=== PATIENT | female | born 1945 | race Hispanic/Latino ===

== ENCOUNTER 2021-09-20 14:00 | Inpatient (IN) | payer MEDICARE, OTHER ==
[~2021-09-20] VITALS: Ht 144.8 cm; Wt 86.3 kg
[2021-09-20 10:37] LABS: APPEARANCE,URINE Clear (CLEAR); BILIRUBIN,URINE Negative (NEGATIVE); COLOR,URINE Dark Yellow (YELLOW); GLUCOSE, URINE (UA) Negative (NEGATIVE); KETONES,URINE Negative (NEGATIVE); LEUKOCYTE ESTERASE ,URINE Trace (NEGATIVE); NITRATE,URINE Positive (NEGATIVE); OCCULT BLOOD,URINE Negative (NEGATIVE); PROTEIN,URINE Negative (NEGATIVE); UROBILINOGEN,URINE 0.2 mg/dL (0.2-1.0)
[2021-09-20 10:41] LABS: CREATININE 0.7 mg/dL (0.5-1.5); POTASSIUM 4.7 mmol/L (3.5-5.1)
[2021-09-20 10:53] LABS: BACTERIA,URINE Many /HPF (None Seen); RBC,URINE 0-1 /HPF (0-1); SQUAMOUS EPITHELIAL CELL,UR Rare /HPF (0-2); WBC,URINE 0-1 /HPF (0-1)
[2021-09-21 09:46] VITALS: BP 132/64
[2021-09-21] MEDS ORDERED: PRAV20TA4 PO (10:38)
[2021-09-21] MEDS ORDERED: FLUT16H NASAL (10:38)
[2021-09-21] MEDS ORDERED: CYCL30DR OP (10:38)
[2021-09-21] MEDS ORDERED: LOSA25TA41 PO (10:38)
[2021-09-21] MEDS ORDERED: CYAN250010 PO (10:38)
[2021-09-21] MEDS ORDERED: METF-446 PO (10:38)
[2021-09-21] MEDS ORDERED: AEC81 PO (10:38)
[2021-09-21] MEDS ORDERED: VITAMIN D2 PO (10:38)
[2021-09-21] MEDS ORDERED: AZEL137S11 NS (10:38)
[2021-09-21] MEDS ORDERED: FEXO-59 PO (10:38)
[2021-09-21] MEDS ORDERED: FAMO40TA7 PO (10:38)
[2021-09-21] MEDS ORDERED: MONT-39 PO (10:38)
[2021-09-21] MEDS ORDERED: MECL-160 PO (10:38)
[2021-09-21] MEDS ORDERED: CINN1CAP PO (10:38)
[2021-09-21] MEDS ORDERED: LEVO112C4 PO (10:38)
[2021-09-21] MEDS ORDERED: OMEP40CA21 PO (10:38)
[2021-09-21] MEDS ORDERED: METO-408 PO (10:38)
[2021-09-21] MEDS ORDERED: LOTE8.3D OP (10:38)
[2021-09-24] VITALS (21 sets, daily range): BP systolic 100–145; BP diastolic 43–70
[2021-09-24] MEDS: CEFAZOLIN SODIUM 1 GM VIAL IVP SCH ×4 (05:00→23:27)
[2021-09-24] MEDS ORDERED: CEFAZOLIN SODIUM 1 GM VIAL ONE (07:19)
[2021-09-24] MEDS ORDERED: TRANEXAMIC ACID 1000MG/10ML ONE ×2 (07:19→11:24)
[2021-09-24] MEDS: LEVOFLOXACIN 500 MG/D5W 100 ML 100 ML IV SCH ×2 (07:23→11:57)
[2021-09-24] MEDS ORDERED: VANCOMYCIN 1.5GM/NS 250ML IV SCH ×2 (07:30)
[2021-09-24] MEDS: GENTAMICIN SULFATE 240 MG in 0.9%NACL 100ML 100 ML IV SCH ×3 (08:23→11:57)
[2021-09-24] MEDS ORDERED: ACETAMINOPHEN 500 MG TABLET ONE (08:31)
[2021-09-24] MEDS ORDERED: CELECOXIB 200 MG CAP ONE (08:31)
[2021-09-24] MEDS ORDERED: ROCURONIUM 10MG/1ML SYR 10 MG/ML ML ONE (08:39)
[2021-09-24] MEDS ORDERED: MIDAZOLAM HCL 1 MG/ML 2ML VIAL ONE (08:39)
[2021-09-24] MEDS ORDERED: SUCCINYLCHOLINE 200MG/10ML SYR ONE (08:39)
[2021-09-24] MEDS ORDERED: LIDOCAINE PF 100MG/5ML (2%) SYRINGE 5ML ONE (08:39)
[2021-09-24] MEDS ORDERED: PROPOFOL 10 MG/ML 20ML VIAL IV ONE (08:39)
[2021-09-24] MEDS ORDERED: FENTANYL CITRATE PF 50 MCG/1 ML 2ML VIAL ONE (08:40)
[2021-09-24] MEDS ORDERED: ROPIVACAINE 0.5% 5MG/ML 30ML IJ ONE (08:49)
[2021-09-24] MEDS ORDERED: EPHEDRINE SULFATE 50 MG/ML AMPULE ONE (09:14)
[2021-09-24] MEDS: 0.9%NACL 1000ML 1,000 ML IV ONE ×3 (09:58→11:18)
[2021-09-24] MEDS ORDERED: ONDANSETRON 4MG INJ ONE (10:30)
[2021-09-24] MEDS ORDERED: NEOSTIGMINE 5MG/5ML SYR IV ONE (10:31)
[2021-09-24] MEDS ORDERED: GLYCOPYRROLATE 1 MG/5 ML SYRINGE ONE (10:31)
[2021-09-24] MEDS ORDERED: TEMAZEPAM 15 MG CAPSULE PO PRN (11:00)
[2021-09-24] MEDS ORDERED: LIDOCAINE HCL-MPF 1% 2ML VIAL IV PRN (11:00)
[2021-09-24] MEDS ORDERED: KETOROLAC 15MG/ML VIAL (15MG/ML) IV PRN (11:00)
[2021-09-24] MEDS ORDERED: TRAMADOL HCL 50 MG TABLET PO PRN (11:00)
[2021-09-24] MEDS ORDERED: ONDANSETRON 4MG INJ IVP PRN (11:00)
[2021-09-24] MEDS ORDERED: FERROUS FUMARATE 324 MG TABLET PO PRN (11:00)
[2021-09-24] MEDS ORDERED: CALCIUM CARB 500MG PO PRN (11:00)
[2021-09-24] MEDS: ACETAMINOPHEN 500 MG TABLET PO SCH ×2 (11:00→20:23)
[2021-09-24] MEDS ORDERED: KCL 20 MEQ ERTAB PO PRN (11:00)
[2021-09-24] MEDS ORDERED: OXYCODONE HCL 5 MG TAB PO PRN (11:00)
[2021-09-24] MEDS ORDERED: DiphenhydrAMINE HCL 50 MG/ML VIAL IVP PRN (11:00)
[2021-09-24] MEDS ORDERED: POTASSIUM CHLORIDE 10% ELIXIR 20 MEQ/15 ML UDCUP PO PRN (11:00)
[2021-09-24] MEDS ORDERED: POTASSIUM CHLORIDE 20MEQ/100ML 100 ML IV PRN (11:00)
[2021-09-24] MEDS: INSULIN HUMULIN R 100 UNIT/ML 3ML SQ SCH ×3 (11:30→21:00)
[2021-09-24] MEDS: 0.9%NACL 1000ML 1,000 ML IV SCH ×2 (11:54→20:23)
[2021-09-24] MEDS ORDERED: MEPERIDINE-PF 25 MG/ML SYG ONE (11:56)
[2021-09-24] MEDS ORDERED: CETIRIZINE HCL 5 MG TABLET PO PRN (13:00)
[2021-09-24] MEDS ORDERED: KETOROLAC 30MG VIAL (30MG/ML) ONE (13:54)
[2021-09-24] MEDS: FLUTICASONE PROPIONATE 50MCG/SPRAY 16 GM BOTTLE NS SCH (20:23)
[2021-09-24] MEDS: OXYCODONE HCL 5 MG TAB PO PRN (20:31)
[2021-09-24] MEDS: AZELASTINE HCL NASAL SCH (20:32)
[2021-09-24] MEDS: CYCLOSPORINE OP SCH (20:32)
[2021-09-24] MEDS: LOTEPREDNOL ETABONATE OP SCH (20:32)
[2021-09-24] MEDS: FAMOTIDINE 20MG TAB PO SCH (20:39)
[2021-09-24] MEDS: CELECOXIB 200 MG CAP PO SCH (20:40)
[2021-09-24] MEDS: ATORVASTATIN 10 MG TABLET PO SCH (20:40)
[2021-09-24] MEDS: NITROFURANTOIN MONOHYD/M-CRYST 100 MG CAPSULE PO SCH (20:40)
[2021-09-24] MEDS: PREGABALIN 25 MG CAP PO SCH (20:41)
[2021-09-25] VITALS (7 sets, daily range): BP systolic 92–146; BP diastolic 45–71
[2021-09-25] MEDS: CEFAZOLIN SODIUM 1 GM VIAL IVP SCH (03:50)
[2021-09-25] MEDS: ACETAMINOPHEN 500 MG TABLET PO SCH ×3 (03:54→18:50)
[2021-09-25 04:52] LABS: HEMATOCRIT 28.5 % (36-48); MEAN CORPUSCULAR HEMOGLOBIN 27.5 pg (27.0-33.0); MEAN CORPUSCULAR HGB CONC 31.9 g/dL (32.0-36.0); MEAN CORPUSCULAR VOLUME 86.1 fL (79-99); RED BLOOD CELL COUNT(AUTO) 3.31 MIL/uL (4.00-5.50); RED CELL DISTRIBUTION WIDTH 14.2 % (11.0-15.5); WHITE BLOOD COUNT (AUTO) 5.5 K/uL (4.8-10.8)
[2021-09-25 04:58] LABS: CREATININE 0.8 mg/dL (0.5-1.5); POTASSIUM 3.9 mmol/L (3.5-5.1)
[2021-09-25] MEDS: OXYCODONE HCL 5 MG TAB PO PRN ×2 (05:14→21:27)
[2021-09-25] MEDS: 0.9%NACL 1000ML 1,000 ML IV SCH (06:18)
[2021-09-25] MEDS: INSULIN HUMULIN R 100 UNIT/ML 3ML SQ SCH ×4 (06:18→21:00)
[2021-09-25] MEDS ORDERED: KETOROLAC 30MG VIAL (30MG/ML) ONE (07:56)
[2021-09-25] MEDS: METFORMIN HCL 500 MG TABLET PO SCH ×2 (08:09→16:32)
[2021-09-25] MEDS: PANTOPRAZOLE 40 MG TAB DR PO SCH (08:10)
[2021-09-25] MEDS: LEVOTHYROXINE 112 MCG TABLET PO SCH (08:12)
[2021-09-25] MEDS: LOSARTAN 25 MG TABLET PO SCH (09:00)
[2021-09-25] MEDS: FAMOTIDINE 20MG TAB PO SCH (09:00)
[2021-09-25] MEDS: LOTEPREDNOL ETABONATE OP SCH ×2 (09:00→21:00)
[2021-09-25] MEDS: CINNAMON BARK PO SCH (09:00)
[2021-09-25] MEDS: CYCLOSPORINE OP SCH ×2 (09:00→21:00)
[2021-09-25] MEDS: PREGABALIN 25 MG CAP PO SCH ×2 (09:00→21:27)
[2021-09-25] MEDS: FLUTICASONE PROPIONATE 50MCG/SPRAY 16 GM BOTTLE NS SCH ×2 (09:00→21:00)
[2021-09-25] MEDS: CHROMIUM PICOLIN PO SCH (09:00)
[2021-09-25] MEDS: AZELASTINE HCL NASAL SCH ×2 (09:00→21:00)
[2021-09-25] MEDS: APIXABAN 2.5 MG TABLET PO SCH ×2 (10:40→21:28)
[2021-09-25] MEDS: NITROFURANTOIN MONOHYD/M-CRYST 100 MG CAPSULE PO SCH ×2 (10:41→21:27)
[2021-09-25] MEDS: CELECOXIB 200 MG CAP PO SCH ×2 (10:41→21:27)
[2021-09-25] MEDS: CYANOCOBALAMIN (VITAMIN B-12) 1,000 MCG TABLET PO SCH (10:41)
[2021-09-25] MEDS: POLYETHYLENE GLYCOL 3350 17 GM POWD.PACK PO SCH (10:42)
[2021-09-25] MEDS: MECLIZINE HCL 25 MG TABLET PO SCH (11:12)
[2021-09-25] MEDS ORDERED: METOPROLOL SUCCINATE 50 MG TAB.SR.24H PO SCH (21:00)
[2021-09-25] MEDS ORDERED: FAMOTIDINE 20MG TAB PO SCH (21:00)
[2021-09-25] MEDS ORDERED: MONTELUKAST SODIUM 10 MG TAB PO SCH (21:00)
[2021-09-25] MEDS: ATORVASTATIN 10 MG TABLET PO SCH (21:28)
[2021-09-26] MEDS: ACETAMINOPHEN 500 MG TABLET PO SCH ×2 (03:34→10:49)
[2021-09-26 04:21] VITALS: BP 138/65
[2021-09-26] MEDS: INSULIN HUMULIN R 100 UNIT/ML 3ML SQ SCH ×2 (05:56→12:00)
[2021-09-26] MEDS: LEVOTHYROXINE 112 MCG TABLET PO SCH (05:59)
[2021-09-26] MEDS: PANTOPRAZOLE 40 MG TAB DR PO SCH (05:59)
[2021-09-26 07:30] VITALS: BP 133/51
[2021-09-26] MEDS: CINNAMON BARK PO SCH (08:49)
[2021-09-26] MEDS: CHROMIUM PICOLIN PO SCH (08:49)
[2021-09-26] MEDS: APIXABAN 2.5 MG TABLET PO SCH (08:50)
[2021-09-26] MEDS: CYANOCOBALAMIN (VITAMIN B-12) 1,000 MCG TABLET PO SCH (08:51)
[2021-09-26] MEDS: NITROFURANTOIN MONOHYD/M-CRYST 100 MG CAPSULE PO SCH (08:52)
[2021-09-26] MEDS: MECLIZINE HCL 25 MG TABLET PO SCH (08:53)
[2021-09-26] MEDS: CELECOXIB 200 MG CAP PO SCH (08:53)
[2021-09-26] MEDS: LOSARTAN 25 MG TABLET PO SCH (08:55)
[2021-09-26] MEDS: PREGABALIN 25 MG CAP PO SCH (08:55)
[2021-09-26] MEDS: METFORMIN HCL 500 MG TABLET PO SCH (08:55)
[2021-09-26] MEDS: POLYETHYLENE GLYCOL 3350 17 GM POWD.PACK PO SCH (08:56)
[2021-09-26] MEDS: FLUTICASONE PROPIONATE 50MCG/SPRAY 16 GM BOTTLE NS SCH (08:56)
[2021-09-26] MEDS: CYCLOSPORINE OP SCH (09:00)
[2021-09-26] MEDS: AZELASTINE HCL NASAL SCH (09:00)
[2021-09-26] MEDS: LOTEPREDNOL ETABONATE OP SCH (09:00)
[2021-09-26 11:00] VITALS: BP 140/71
[2021-09-26] MEDS ORDERED: APIX2.5T PO (14:25)
[2021-09-26] MEDS ORDERED: HYDR-4060 PO (14:25)
[2021-09-26] MEDS ORDERED: CEPH500B PO (16:51)
[2021-09-27] MEDS ORDERED: BISACODYL 10 MG SUPP.RECT RC PRN (11:00)
== END 2021-09-26 18:00 | disposition home health service (06) | DRG 470 ==
LOC: OBSVTOIN 09-24 06:37 → DAHIP 09-24 06:37 → 4AH 09-24 11:49
PROVIDERS: ADMIT Orthopaedic Surgery; ATTEND Orthopaedic Surgery
PROC: 0SRD0J9 Replacement of Left Knee Joint with Synthetic Substitute, Cemented, Open Approach (ICD-10-PCS; principal; 2021-09-24 09:35)
DX: M17.12 Unilateral primary osteoarthritis, left knee (principal); N39.0 Urinary tract infection, site not specified; D64.9 Anemia, unspecified; Z20.822 Contact with and (suspected) exposure to COVID-19; E11.9 Type 2 diabetes mellitus without complications; I10 Essential (primary) hypertension; E03.9 Hypothyroidism, unspecified; Z96.651 Presence of right artificial knee joint; Z95.0 Presence of cardiac pacemaker; Z87.440 Personal history of urinary (tract) infections; Z87.19 Personal history of other diseases of the digestive system; Z86.73 Personal history of transient ischemic attack (TIA), and cerebral infarction without residual deficits; Z88.8 Allergy status to other drugs, medicaments and biological substances; Z82.61 Family history of arthritis; Z83.3 Family history of diabetes mellitus; Z82.49 Family history of ischemic heart disease and other diseases of the circulatory system
CPT/HCPCS: 36415; 80048; 81001; 82270; 82948; 85027; 87077; 87088; 87186; 87635; 87641; 88305; 88311; 97039; G0378; J0330; J0690; J1580; J1885; J1956; J2001; J2175; J2250; J2405; J2704; J2710; J2795; J3010; J3370; J3490; J7030; J7050

== ENCOUNTER 2021-09-28 13:11 | Emergency (ER) | payer MEDICARE, OTHER ==
[~2021-09-28] VITALS: Ht 152.4 cm; Wt 86.2 kg
[~2021-09-28 13:11] MED LIST: APIX2.5T PO; AZEL137S11 NS; CEPH500B PO; CINN1CAP PO; CYAN250010 PO; CYCL30DR OP; FAMO40TA7 PO; FEXO-59 PO; FLUT16H NASAL; HYDR-4060 PO; LEVO112C4 PO; LOSA25TA41 PO; LOTE8.3D OP; MECL-160 PO; METF-446 PO; METO-408 PO; MONT-39 PO; OMEP40CA21 PO; PRAV20TA4 PO; VITAMIN D2 PO
[2021-09-28 13:46] LABS: BASOPHILS % (AUTO) 0.5 % (0.0-5.0); EOSINOPHILS % (AUTO) 6.7 % (0.0-8.0); HEMATOCRIT 29.1 % (36-48); LYMPHOCYTES % (AUTO) 25.5 % (21.0-51.0); MEAN CORPUSCULAR HEMOGLOBIN 28.3 pg (27.0-33.0); MEAN CORPUSCULAR VOLUME 85.8 fL (79-99); NEUTROPHILS % (AUTO) 56.8 % (40.0-77.0); PLATELET COUNT (AUTO) 270 K/uL (130-400); RED BLOOD CELL COUNT(AUTO) 3.39 MIL/uL (4.00-5.50); RED CELL DISTRIBUTION WIDTH 14.2 % (11.0-15.5); WHITE BLOOD COUNT (AUTO) 5.5 K/uL (4.8-10.8)
[2021-09-28 14:09] LABS: CREATININE 0.8 mg/dL (0.5-1.5); POTASSIUM 4.3 mmol/L (3.5-5.1)
[2021-09-28 14:14] LABS: ALBUMIN 3.4 g/dL (3.5-5.0); BILIRUBIN,TOTAL 0.6 mg/dL (0.2-1.0); CRP QUANTITATIVE 87.5 mg/L (0.00-9.0); TOTAL PROTEIN, SERUM 6.3 g/dL (6.0-8.3)
[2021-09-28 15:00] LABS: APPEARANCE,URINE CLEAR (CLEAR); BILIRUBIN,URINE SMALL (NEGATIVE); COLOR,URINE YELLOW (YELLOW); GLUCOSE, URINE (UA) NEGATIVE (NEGATIVE); KETONES,URINE NEGATIVE (NEGATIVE); LEUKOCYTE ESTERASE ,URINE NEGATIVE (NEGATIVE); NITRATE,URINE NEGATIVE (NEGATIVE); OCCULT BLOOD,URINE NEGATIVE (NEGATIVE); PH,URINE 5.5 (5.0-8.0); PROTEIN,URINE NEGATIVE (NEGATIVE); UROBILINOGEN,URINE 0.2 mg/dL (0.2-1.0)
[2021-09-28 15:19] LABS: BACTERIA,URINE Few /HPF (None Seen); RBC,URINE 0-1 /HPF (0-1); SQUAMOUS EPITHELIAL CELL,UR Few /HPF (0-2); WBC,URINE 0-1 /HPF (0-1)
[2021-09-28 15:22] LABS: MUCUS,URINE Few LPF (None Seen)
[2021-09-28 16:22] VITALS: BP 139/46
== END 2021-09-28 16:40 | disposition home or self-care (01) ==
LOC: EDH 13:11
DX: D64.9 Anemia, unspecified (principal); K80.20 Calculus of gallbladder without cholecystitis without obstruction; I10 Essential (primary) hypertension; E11.9 Type 2 diabetes mellitus without complications; Z98.890 Other specified postprocedural states; Z79.899 Other long term (current) drug therapy; Z88.8 Allergy status to other drugs, medicaments and biological substances
CPT/HCPCS: 36415; 71045; 74176; 80053; 81001; 82270; 84484; 85025; 86140; 93005

== ENCOUNTER → 2022-01-29 | Outpatient (CLI) | payer MEDICARE, OTHER ==
[~2022-01-29] MED LIST changes: -FEXO-59 PO; +[UNRECOGNIZED DRUG - CODE] PO
== END | disposition home or self-care (01) ==
LOC: RAH 11:39
PROVIDERS: ATTEND Family Medicine
DX: M19.012 Primary osteoarthritis, left shoulder (principal); Z95.0 Presence of cardiac pacemaker
CPT/HCPCS: 73030

== ENCOUNTER → 2022-10-17 | Outpatient (CLI) | payer MEDICARE, OTHER ==
[~2022-10-17] MED LIST changes: +FEXO-263 PO; -[UNRECOGNIZED DRUG - CODE] PO
== END ==
LOC: RAH 13:39
PROVIDERS: ATTEND Family Medicine
DX: I67.1 Cerebral aneurysm, nonruptured (principal)
CPT/HCPCS: 70544

== ENCOUNTER → 2023-02-07 | Outpatient (CLI) | payer MEDICARE, OTHER ==
[~2023-02-07] MED LIST changes: +IOHEXOL-350 75 ML VIAL IV ONE
== END | disposition home or self-care (01) ==
LOC: RAH 08:41
PROVIDERS: ATTEND Internal Medicine Gastroenterology
DX: N28.1 Cyst of kidney, acquired (principal); K57.30 Diverticulosis of large intestine without perforation or abscess without bleeding; M47.815 Spondylosis without myelopathy or radiculopathy, thoracolumbar region
CPT/HCPCS: 74178; Q9967

== ENCOUNTER → 2023-05-15 | Outpatient (CLI) | payer MEDICARE, OTHER ==
[~2023-05-15] MED LIST changes: -IOHEXOL-350 75 ML VIAL IV ONE
[2023-05-15 12:53] LABS: CREATININE 0.9 mg/dL (0.5-1.5)
== END | disposition home or self-care (01) ==
LOC: LAB 11:01
PROVIDERS: ATTEND Internal Medicine Gastroenterology
DX: R10.30 Lower abdominal pain, unspecified (principal)
CPT/HCPCS: 36415; 82565; 84520

== ENCOUNTER → 2023-08-27 | Outpatient (CLI) | payer MEDICARE ==
[~2023-08-27] MED LIST changes: -MECL-160 PO; +MECL-302 PO
== END | disposition home or self-care (01) ==
LOC: RAH 15:44
PROVIDERS: ATTEND Family Medicine
DX: I70.0 Atherosclerosis of aorta (principal); I25.9 Chronic ischemic heart disease, unspecified; Z87.01 Personal history of pneumonia (recurrent); Z87.09 Personal history of other diseases of the respiratory system; R05.9 Cough, unspecified; M47.815 Spondylosis without myelopathy or radiculopathy, thoracolumbar region; Z95.0 Presence of cardiac pacemaker
CPT/HCPCS: 71046

== ENCOUNTER → 2024-01-23 | Outpatient (CLI) | payer MEDICARE ==
[~2024-01-23] MED LIST changes: +MECL-160 PO; -MECL-302 PO
== END | disposition home or self-care (01) ==
LOC: RAH 11:59
PROVIDERS: ATTEND Physician Assistant
DX: M47.26 Other spondylosis with radiculopathy, lumbar region (principal); M41.86 Other forms of scoliosis, lumbar region; M54.51 Vertebrogenic low back pain; M48.061 Spinal stenosis, lumbar region without neurogenic claudication
CPT/HCPCS: 72114

== ENCOUNTER → 2024-02-24 | Outpatient (CLI) | payer MEDICARE ==
[~2024-02-24] MED LIST changes: -MECL-160 PO; +MECL-302 PO
== END ==
LOC: RAH 14:41
PROVIDERS: ATTEND Physical Medicine & Rehabilitation
DX: M47.26 Other spondylosis with radiculopathy, lumbar region (principal); M48.07 Spinal stenosis, lumbosacral region
CPT/HCPCS: 72148

== ENCOUNTER → 2025-06-14 | Outpatient (CLI) | payer MEDICARE ==
[~2025-06-14] MED LIST changes: -FEXO-263 PO; +FEXO-402 PO; -LEVO112C4 PO; +LEVO112C5 PO; -PRAV20TA4 PO; +PRAV20TA59 PO
--- NOTE | 2025-06-14 17:48 | HMCIMG ---
CLINICAL INFORMATION Left hip pain COMPARISON None. TECHNIQUE Multiplanar multisequence MR imaging of the left hip without contrast FINDINGS Bones: No evidence for fracture or bone destruction. Marrow signal is normal. Acetabular cartilage/labrum: Mild cartilage thinning. No acute displaced labral tear. Hip joint space: No evidence for joint effusion, synovitis, or intra-articular bodies. Bursal fluid: Mild trochanteric bursitis. Pubic symphysis: Normal. Visualized portions of the sacroiliac joints: Normal. Soft tissues: Muscles and tendons show no atrophy, edema, mass, tear, or other abnormality. Colonic diverticulosis. Other: Lower lumbar disc degeneration, partially imaged. IMPRESSION Mild left hip osteoarthritis. Mild trochanteric bursitis. No acute osseous or soft tissue abnormality. /[place]
--- NOTE | 2025-06-14 17:50 | HMCIMG ---
Exam: SHOULDER MRI WITHOUT IV CONTRAST. HISTORY:Shoulder pain. TECHNIQUE: Axial, coronal, and sagittal images of the shoulder were obtained. COMPARISON:None. FINDINGS: BONE MARROW:No fracture or avascular necrosis. ACROMIOCLAVICULAR JOINT:[id number] osteoarthritis. BURSITIS:Mild subacromial bursitis. ROTATOR CUFF TENDONS:High-grade partial-thickness tear of the supraspinatus tendon anterior fibers. A few posterior fibers are intact. No tendon retraction or muscle atrophy. Infraspinatus tendinosis without high-grade tear. Normal subscapularis tendon. BICEPS:The biceps is normally situated at the bicipital carrie without subluxation or dislocation. No significant tendinosis, tenosynovitis, or tear. GLENOHUMERAL JOINT:No focal cartilage lesion. No joint effusion or intra-articular bodies. LABRAL LIGAMENTOUS COMPLEX:Labrum is intact without pathology. ROTATOR INTERVAL:Unremarkable. CORACOACROMIAL AND CORACOCLAVICULAR LIGAMENTS:Intact. No visualized tears. MUSCLES:No edema or atrophy. 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 QUADRILATERAL SPACE:Normal without masses. IMPRESSION: High-grade partial-thickness tear of the supraspinatus tendon anterior fibers. No tendon retraction or muscle atrophy. Infraspinatus tendinosis without high-grade tear. [id number] acromioclavicular joint osteoarthritis with mild subacromial bursitis. /[place]
== END | disposition home or self-care (01) ==
LOC: RAH 14:23
PROVIDERS: ATTEND Physical Medicine & Rehabilitation
DX: M75.111 Incomplete rotator cuff tear or rupture of right shoulder, not specified as traumatic (principal); M16.12 Unilateral primary osteoarthritis, left hip; M19.011 Primary osteoarthritis, right shoulder; M70.62 Trochanteric bursitis, left hip; M75.51 Bursitis of right shoulder; K57.30 Diverticulosis of large intestine without perforation or abscess without bleeding; D17.9 Benign lipomatous neoplasm, unspecified; M67.813 Other specified disorders of tendon, right shoulder; M25.511 Pain in right shoulder; M25.552 Pain in left hip; M75.01 Adhesive capsulitis of right shoulder; M54.16 Radiculopathy, lumbar region; Y93.89 Activity, other specified
CPT/HCPCS: 73221; 73721